=== PATIENT | female | born 1935 | race Caucasian/White ===

== ENCOUNTER 2018-10-23 07:09 | Emergency (ER) | payer OTHER ==
[~2018-10-23] VITALS: Ht 154.9 cm; Wt 48.7 kg
[2018-10-23] MEDS ORDERED: SYNTHROID25 MC1 PO (07:20)
[2018-10-23] MEDS ORDERED: SENNA8.6 MG PO (07:20)
[2018-10-23] MEDS ORDERED: LASIX 20 MG TAB20 MG PO (07:20)
[2018-10-23] MEDS ORDERED: SODIUM BICARBO650 M3 PO (07:21)
[2018-10-23] MEDS ORDERED: NORCO 5-325 TA1 EACH PO (07:22)
[2018-10-23] MEDS ORDERED: KIONEX15 GM/60 M PO (07:23)
[2018-10-23] MEDS ORDERED: NOVOLIN 70100 UNIT/1 SUBQ (07:23)
[2018-10-23] MEDS ORDERED: REMERON15 MG PO (07:23)
[2018-10-23 08:08] LABS: ABSOLUTE NEUTROPHILS 3.2 thou/uL (1.4-8.2); BASOPHILS 0.7 % (0.0-2.0); EOSINOPHILS 6.6 % (0.0-3.0); HEMOGLOBIN 11.5 gm/dL (12.0-15.0); LYMPHOCYTES 29.3 % (24.0-44.0); MCH 31.2 pg (26.0-34.0); MCHC 33.8 g/dL (28.0-37.0); MCV 92.4 fL (80.0-100.0); MONOCYTES 7.6 % (1.0-8.0); PLATELET COUNT 256 thou/uL (150-400); POLYS 55.8 % (36.0-66.0); RBC 3.69 mil/uL (4.20-5.00); RDW 12.5 % (10.5-14.5); WBC 5.7 thou/uL (4.0-11.0)
[2018-10-23 08:17] LABS: ANION GAP 11 mmol/L (7-16); BUN 31 mg/dL (7-18); CALCIUM 8.7 mg/dL (8.5-10.1); CHLORIDE 104 mmol/L (98-107); CO2 28 mmol/L (21-32); CREATININE 2.3 mg/dL (0.6-1.0); GLUCOSE 186 mg/dL (74-106); POTASSIUM 3.4 mmol/L (3.5-5.1); SODIUM 143 mmol/L (136-145)
[2018-10-23 08:21] LABS: URINE BILIRUBIN NEGATIVE (Negative); URINE BLOOD 3+ (Negative); URINE CLARITY CLEAR; URINE COLOR YELLOW; URINE GLUCOSE-RANDOM* NEGATIVE (Negative); URINE KETONES NEGATIVE (Negative); URINE PROTEIN (DIPSTICK) 1+ (Negative); URINE UROBILINOGEN 0.2 E.U./dl (0.2-1.0)
[2018-10-23 08:26] LABS: TROPONIN-I <0.06 ng/mL (<0.06)
[2018-10-23 08:28] LABS: URINE LEUKOCYTES-REFLEX 2+ (Negative); URINE NITRITE-REFLEX POSITIVE (Negative)
[2018-10-23 08:39] LABS: CASTS None Seen /LPF (None Seen); CRYSTALS None Seen /LPF (None Seen); SQUAMOUS 4-10 Moderate /LPF (0-3); URINE WBC-REFLEX >25 Many /HPF (0-5)
[2018-10-23] MEDS ORDERED: KEFLEX500 M1 PO (09:02)
[2018-10-23 09:40] VITALS: BP 144/75
--- NOTE | 2018-10-23 10:40 | EKG ---
[place] [address] [facility] [place] [address] ELECTROCARDIOGRAM REPORT Name: WENCESLAO MORELAND [id number] ������������������ Admission: 10/23/18 ������������������ Attend Phys: Discharge: 10/23/18 ������������������ Date of : 31 Report #: [id number] ����������������������������������������������������������������� [id number] THIS REPORT FOR: //name// [facility] ED Test Date: 2018-10-23 Test Time: 07:39:06 Pat Name: WENCESLAO MORELAND Department: Room: Gender: F [employer] Announcer: : 1935 Requested By: Casey Garcia Order Number: [id number] MD: Leonardo Das Measurements Intervals [place] Rate: 82 P: 47 TX: 150 QRS: -7 QRSD: 84 T: 68 QT: 400 QTc: 468 Interpretive Statements Sinus rhythm Low voltage, precordial leads No previous ECG available for comparison Electronically Signed On 10-23-2018 10:39:58 CDT by Leonardo Das [email or web address] ��������������������������������������������� <ELECTRONICALLY SIGNED> ���������������������������������������� By: Leonardo Das MD ��������������������������������������������� 10/23/18 1039 0739 [id number] Leonardo Das MD /EPI
== END 2018-10-23 09:41 | disposition home or self-care (01) ==
LOC: ER 07:09
PROVIDERS: Emergency Medicine
DX: S01.21XA Laceration without foreign body of nose, initial encounter (principal); N39.0 Urinary tract infection, site not specified; F03.90 Unspecified dementia, unspecified severity, without behavioral disturbance, psychotic disturbance, mood disturbance, and anxiety; Z88.2 Allergy status to sulfonamides; W18.30XA Fall on same level, unspecified, initial encounter; Y93.89 Activity, other specified; Y92.89 Other specified places as the place of occurrence of the external cause; Y99.8 Other external cause status

== ENCOUNTER 2020-04-29 07:35 | Emergency (ER) | payer OTHER ==
[~2020-04-29] VITALS: Ht 152.4 cm; Wt 45.4 kg
[~2020-04-29 07:35] MED LIST: KEFLEX500 M1 PO; KIONEX15 GM/60 M PO; LASIX 20 MG TAB20 MG PO; NORCO 5-325 TA1 EACH PO; NOVOLIN 70100 UNIT/1 SUBQ; REMERON15 MG PO; SENNA8.6 MG PO; SODIUM BICARBO650 M3 PO; SYNTHROID25 MC1 PO
[2020-04-29 10:02] VITALS: BP 150/56
== END 2020-04-29 12:15 | disposition home or self-care (01) ==
LOC: ER 07:35
DX: S02.2XXA Fracture of nasal bones, initial encounter for closed fracture (principal); M25.531 Pain in right wrist; E03.9 Hypothyroidism, unspecified; E78.5 Hyperlipidemia, unspecified; I12.9 Hypertensive chronic kidney disease with stage 1 through stage 4 chronic kidney disease, or unspecified chronic kidney disease; E11.22 Type 2 diabetes mellitus with diabetic chronic kidney disease; N18.9 Chronic kidney disease, unspecified; Z86.2 Personal history of diseases of the blood and blood-forming organs and certain disorders involving the immune mechanism; Z79.899 Other long term (current) drug therapy; Z88.2 Allergy status to sulfonamides; W06.XXXA Fall from bed, initial encounter; Y93.89 Activity, other specified; Y92.89 Other specified places as the place of occurrence of the external cause; Y99.8 Other external cause status

== ENCOUNTER 2021-03-17 12:54 | Emergency (ER) | payer OTHER ==
[~2021-03-17] VITALS: Ht 152.4 cm; Wt 52.2 kg
--- NOTE | ~2021-03-17 | EMS ---
[address] [address] EMS Patient Care Report Name: WENCESLAO MORELAND Room #: DEP Derrick#: [id number] Admission: 03/17/21 Attend Phys: Discharge: 03/17/21 Date of : 31 Report #: [id number] THIS REPORT FOR: //name// Report Transmitted: 03/20/2021 14:51 EMS Care Summary [place], [place]/[facility] Incident [id number] @ 03/17/2021 12:23 Incident Location 62 [address] [id number] Patient WENCESLAO MORELAND Female, 86 Years 1934-07-21 Patient Address [address] [place] [address] [address] [place] [address] Patient History Dementia,Diabetes, Chief Complaint HYPOGLYCEMIA Disposition Transported No Lights/[place] Reason Diabetic Problem Transported To [facility] Narrative PUMPER 36/MEDIC 30 WERE DISPATCHED TO THE ADDRESS LISTED PREVIOUSLY IN THIS REPORT ON A PATIENT WITH A DIABETIC EMERGENCY. UPON ARRIVAL, EMS OBSERVED ONE FEMALE PATIENT SITTING UPRIGHT IN A CHAIR, INTERACTNG WITH PREVIOUSLY ARRIVING [facility] P[facility]. PATIENT WAS TRACKING EMS UPON APPROACH. INTERMEDIATE STAFF INFORMED EMS THAT THEY OBSERVED THE PATIENT'S BLOOD GLUCOSE LEVEL TO BE BELOW NORMAL LIMITS. INTERMEDIATE STAFF INFORMED EMS THAT THEY ADMINISTERED ORAL GLUCOSE PRIOR TO EMS ARRIVAL. [facility] PERSONNEL INFORMED EMS THAT THE [address] [address] EMS Patient Care Report Name: WENCESLAO MORELAND Room #: DEP [facility]#: [id number] Admission: 03/17/21 Attend Phys: Discharge: 03/17/21 Date of : 31 Report #: [id number] PATIENT'S GLUCOSE WAS WITHIN NORMAL LIMITS UPON THEIR ARRIVAL. PATIENT WAS THEN PLACED ON THE COT AND MOVED TO THE AMBULANCE WITHOUT INCIDENT. ONCE IN THE AMBULANCE, VITAL SIGN MONITORING CONTINUED. ONCE ENROUTE TO THE RECEIVING FACILITY ([facility]), VITAL SIGN MONITORING CONTINUED AND RADIO REPORT WAS GIVEN. UPON ARRIVL AT THE RECEIVING FACILITY, PATIENT WAS MOVED FROM THE AMBULANCE TO THE HOSPITAL COT WITHOUT INCIDENT. VERBAL REPORT WAS GIVEN TO THE PATIENT'S NURSE AND PATIENT CARE WAS TRANSFERRED. Initial Vitals @12:47P: 68,R: 16,BP: 127/73,Pain: 0/10,GCS: 14,Glucose: 178,SpO2: 99,Revised Trauma: 12, Assessments @12:49MENTAL:Confused,Place Oriented,Person Oriented,SKIN:HEENT:LUNG SOUNDS:ABDOMEN:PELVIS//GI:EXTREMITIES:PULSE:Radial: 2+ Normal,NEURO: Impression Diabetic Hypoglycemia Procedures @PTAALS AssessmentResponse: UnchangedSucceeded Timeline POULTRYMAN,ALS Assessment,Response: UnchangedSucceeded, 12:22,Call Received 12:22,Dispatch Notified 12:23,Dispatched 12:23,En Route 12:34,On Scene 12:37,At Patient 12:47,BP: 127/73 M,PULSE: 68,RR: 16 R,SPO2: 99 Ox,ETCO2: ,B,PAIN: 0,GCS: 14, 12:50,Depart Scene 12:52,At Destination 13:00,Call Closed Disclaimer v1.1 Copyright 2020 [email or web address] This EMS Care Summary contains data elements from the applicable legal record (which may be displayed differently). It is designed to provide pertinent information for the following purposes: continuity of care, clinical quality, and state data reporting. The complete legal record is available to ED staff and administrators of the receiving hospital in [employer] Patient Tracker. All data is provided "as is."
[2021-03-17 13:37] LABS: CALCIUM 6.8 mg/dL (8.5-10.1); CREATININE 1.6 mg/dL (0.6-1.0)
[2021-03-17] MEDS ORDERED: KLOR-CON M2020 MEQ PO ×2 (14:40→17:08)
[2021-03-17 15:00] VITALS: BP 132/76
== END 2021-03-17 15:00 | disposition home or self-care (01) ==
LOC: ER 12:54
PROVIDERS: Nurse Practitioner
DX: E16.2 Hypoglycemia, unspecified (principal); E11.9 Type 2 diabetes mellitus without complications; M19.90 Unspecified osteoarthritis, unspecified site; E78.5 Hyperlipidemia, unspecified; E03.9 Hypothyroidism, unspecified; I12.9 Hypertensive chronic kidney disease with stage 1 through stage 4 chronic kidney disease, or unspecified chronic kidney disease; N18.9 Chronic kidney disease, unspecified; Z79.899 Other long term (current) drug therapy; Z79.891 Long term (current) use of opiate analgesic; Z88.2 Allergy status to sulfonamides